=== PATIENT | male | born 1965 | race Caucasian/White ===

== ENCOUNTER 2017-06-19 11:26 | Day surgery (SDC) | payer MEDICARE ==
[2017-06-19] MEDS: Sodium Chloride 0.9% 10 ML FLUSH Syringe PICC PRN ×2 (11:40→11:42)
[2017-06-19 11:57] VITALS: BP 120/37; PULSE 85; O2SAT 99
== END 2017-06-19 12:00 | disposition home or self-care (01) ==
LOC: INFUSION 11:26
PROVIDERS: ATTEND Internal Medicine Nephrology
DX: N18.6 End stage renal disease (principal)
CPT/HCPCS: G0463